=== PATIENT | female | born 1995 | race Caucasian/White ===

== ENCOUNTER 2017-05-29 19:30 | Emergency (ER) | payer OTHER ==
[~2017-05-29] VITALS: Ht 160 cm; Wt 88.0 kg
[~2017-05-29 19:30] MED LIST: ALLER-TEC10 MG PO; AZITHROMYCIN250 MG PO; CLONIDINE HCL0.1 MG PO; GUAIFENESIN-CO118 ML PO; GUIATUSS AC SY120 ML PO; PREDNISONE20 MG PO; PROBIOTIC1 EAC3 PO; ZOFRAN4 MG PO
--- OUTSIDE RECORDS SUMMARY | 2017-05-29 19:57 | XMS ---
Demographics + + + | Address | [address] | | | [place] [address] | + + + | Preferred Language | Unknown | + + + | Marital Status | Unknown | + + + | Jain Affiliation | Unknown | + + + | Race | Unknown | + + + | Ethnic Group | Unknown | + + + Author + + + | Author | [facility] | + + + | Organization | [facility] | + + + | Address | [address] | | | [place] [address] | + + + | Phone | | + + + Care Team Providers + + + + | Care Payroll Representative Name | Role | Phone | + + + + Unavailable | Unavailable | + + + + PROBLEMS Unknown Problems ALLERGIES + + + + +--------+ | Substance | Reaction | Event Type | Date | Status | + + + + +--------+ | Morphine | Unknown | Drug Allergy | Apr, | Active | + + + + +--------+ SOCIAL HISTORY No smoking Hx information available PLAN OF CARE + +---------+ | Activity | Details | + +---------+ +---+ | | +---+ + + + | Follow Up | as scheduled with PCP to establish care | | | Reason:null | + + + VITAL SIGNS + + + + | Height | 64.75 in | 2017-04-09 | + + + + | Weight | 194.4 lbs | 2017-04-09 | + + + + | BMI | 32.60 kg/m2 | 2017-04-09 | + + + + | Temperature | 97.9 degrees Fahrenheit | 2017-04-09 | + + + + | Heart Rate | 104 /min | 2017-04-09 | + + + + | Blood pressure systolic | 141 mm Hg | 2017-04-09 | + + + + | Blood pressure diastolic | 77 mm Hg | 2017-04-09 | + + + + MEDICATIONS + + +---------+ + + + +--------+ | Medicati | Instruct | Dosage | Frequenc | Start | End Date | Duration | Status | | on | ions | | y | Date | | | | + + +---------+ + + + +--------+ | Azithrom | Orally | 2 | 24h | Apr, | 10 Apr, | 1 | Active | | ycin 500 | Once a | tablets | | 2017 | 2017 | dose(s) | | | mg | day | | | | | | | + + +---------+ + + + +--------+ RESULTS + +--------+------+ + | Name | Result | Date | Reference Range | + +--------+------+ + | GC/Chlamydia Aptima | | | | + +--------+------+ + PROCEDURES + + + + + | Procedure | Date Ordered | Related Diagnosis | Body Site | + + + + + | Est Level III | April 09, 2017 | | | | Intermediate | | | | + + + + + IMMUNIZATIONS No Known Immunizations"
[2017-05-29] MEDS ORDERED: ZOFRAN ODT4 MG PO (21:06)
== END 2017-05-29 21:23 | disposition home or self-care (01) ==
LOC: ED 19:30
DX: K52.9 Noninfective gastroenteritis and colitis, unspecified (principal); Z88.5 Allergy status to narcotic agent
CPT/HCPCS: 80053; 81001; 84703; 85025; 96361; 96374; 99283; J2405; J7040

== ENCOUNTER 2017-07-01 07:49 | Emergency (ER) | payer SELFPAY ==
[~2017-07-01] VITALS: Ht 160 cm; Wt 86.9 kg
[~2017-07-01 07:49] MED LIST changes: +ZOFRAN ODT4 MG PO
== END 2017-07-01 08:00 | disposition home or self-care (01) ==
LOC: ED 07:49
DX: Z00.8 Encounter for other general examination (principal)

== ENCOUNTER 2017-07-23 05:35 | Emergency (ER) | payer OTHER ==
[~2017-07-23] VITALS: Ht 160 cm; Wt 86.6 kg
--- OUTSIDE RECORDS SUMMARY | 2017-07-23 05:46 | XMS ---
Demographics + + + | Address | [address] | | | [place] [address] | + + + | Preferred Language | Unknown | + + + | Marital Status | Unknown | + + + | Spiritism Affiliation | Unknown | + + + | Race | Unknown | + + + | Ethnic Group | Unknown | + + + Author + + + | Author | [facility] | + + + | Organization | [facility] | + + + | Address | [address] | | | [place] [address] | + + + | Phone | | + + + Care Team Providers + + + + | Care Airplane Gastank Liner Assembler Name | Role | Phone | + + + + Unavailable | Unavailable | + + + + PROBLEMS Unknown Problems ALLERGIES + + + + +--------+ | Substance | Reaction | Event Type | Date | Status | + + + + +--------+ | Morphine | Unknown | Drug Allergy | Jun, | Active | + + + + +--------+ SOCIAL HISTORY No smoking Hx information available PLAN OF CARE + +---------+ | Activity | Details | + +---------+ +---+ | | +---+ + + + | Follow Up | prn Reason:null | + + + VITAL SIGNS + + + + | Height | 64.75 in | 2017-07-01 | + + + + | Weight | 193 lbs | 2017-07-01 | + + + + | BMI | 32.36 kg/m2 | 2017-07-01 | + + + + | Temperature | 97.4 degrees Fahrenheit | 2017-07-01 | + + + + | Heart Rate | 83 /min | 2017-07-01 | + + + + | Blood pressure systolic | 123 mm Hg | 2017-07-01 | + + + + | Blood pressure diastolic | 74 mm Hg | 2017-07-01 | + + + + MEDICATIONS + + + + + + + +--------+ | Medicati | Instruct | Dosage | Frequenc | Start | End Date | Duration | Status | | on | ions | | y | Date | | | | + + + + + + + +--------+ | Amoxicil | Orally | 1 tablet | 12h | Jun, | 7 Jul, | 10 | Active | | kerrie 875 | every 12 | | | 2017 | 2017 | day(s) | | | MG | hrs | | | | | | | + + + + + + + +--------+ RESULTS + +--------+------+ + | Name | Result | Date | Reference Range | + +--------+------+ + | Strep Gp A Rapid | | | | | (IH) | | | | + +--------+------+ + PROCEDURES + + + + + | Procedure | Date Ordered | Related Diagnosis | Body Site | + + + + + | STREP A ASSAY | Jul 01, 2017 | | | | W/OPTIC | | | | + + + + + | Est Level III | Jul 01, 2017 | | | | Intermediate | | | | + + + + + | DOC MEDS VERIFIED | Jul 01, 2017 | | | | W/PT OR RE | | | | + + + + + | DSCHRG MED/CURRENT | Jul 01, 2017 | | | | MED MERGE | | | | + + + + + IMMUNIZATIONS No Known Immunizations"
[2017-07-23] MEDS ORDERED: ACYCLOVIR200 MG PO (06:39)
== END 2017-07-23 06:50 | disposition home or self-care (01) ==
LOC: ED 05:35
DX: J02.9 Acute pharyngitis, unspecified (principal); F31.9 Bipolar disorder, unspecified; F32.9 Major depressive disorder, single episode, unspecified; Z87.891 Personal history of nicotine dependence; Z88.5 Allergy status to narcotic agent
CPT/HCPCS: 87081; 87529; 87880; 99283

== ENCOUNTER 2017-07-25 01:53 | Emergency (ER) | payer OTHER ==
[~2017-07-25] VITALS: Ht 160 cm; Wt 86.6 kg
[~2017-07-25 01:53] MED LIST changes: +ACYCLOVIR200 MG PO
[2017-07-25] MEDS ORDERED: PERCOCET 5-3251 EACH PO (02:24)
[2017-07-25] MEDS ORDERED: TRAMADOL HCL50 MG PO (02:43)
== END 2017-07-25 02:55 | disposition home or self-care (01) ==
LOC: ED 01:53
DX: J02.9 Acute pharyngitis, unspecified (principal); A60.04 Herpesviral vulvovaginitis; F31.9 Bipolar disorder, unspecified; F43.10 Post-traumatic stress disorder, unspecified; F41.9 Anxiety disorder, unspecified; Z88.5 Allergy status to narcotic agent; Z79.899 Other long term (current) drug therapy
CPT/HCPCS: 99283

== ENCOUNTER 2018-06-24 20:32 | Emergency (ER) | payer OTHER ==
[~2018-06-24] VITALS: Ht 160 cm; Wt 66.0 kg
[~2018-06-24 20:32] MED LIST changes: +PERCOCET 5-3251 EACH PO; +TRAMADOL HCL50 MG PO
[2018-06-24] MEDS ORDERED: VALTREX500 MG PO (20:52)
--- OUTSIDE RECORDS SUMMARY | 2018-06-24 21:37 | XMS | Clinical Summary ---
Demographics + + + | Address | [address] | | | [place] [address] | + + + | Home Phone | | + + + | Preferred Language | Unknown | + + + | Marital Status | Single | + + + | Denominational Affiliation | Unknown | + + + | Race | Unknown | + + + | Ethnic Group | Unknown | + + + Author + + + | Author | [facility] | + + + | Organization | [facility] | + + + | Address | Unknown | + + + | Phone | Unavailable | + + + Support + + +---------+ + | Name | Relationship | Address | Phone | + + +---------+ + | Lauren Morataya | ECON | Unknown | | + + +---------+ + Care Team Providers + +------+ + | Care Credit Control Manager Name | Role | Phone | + +------+ + | Medicine, [place] | PP | Unavailable | | Family | | | + +------+ + Allergies + + + + + + | Active Allergy | Reactions | Severity | Noted | Comments | | | | | Date | | + + + + + + | Morphine | Headache | Low | 03/02/20 | | | | | | 15 | | + + + + + + Current Medications + + +---------+---------+------+------+-------+ | Prescription | Sig. | Disp. | Refills | Star | End | Statu | | | | | | t | Date | s | | | | | | Date | | | + + +---------+---------+------+------+-------+ | cephALEXin | Take 1 capsule by | 28 | 0 | 04/05 | | Activ | | (KEFLEX) 500 MG | mouth 4 (four) times | capsule | | 05/23 | | e | | capsule | daily. | | | 17 | | | + + +---------+---------+------+------+-------+ Active Problems Not on file Immunizations +------+ + + | Name | Dates Previously Given | Next Due | +------+ + + | Tdap | 04/30/2017 | | +------+ + + Social History + +-------+ +--------+------+ | Tobacco Use | Types | Packs/Day | Years | Date | | | | | Used | | + +-------+ +--------+------+ | Former Smoker | | 0.25 | | | + +-------+ +--------+------+ + + +---------+ + | Alcohol Use | Drinks/We | oz/Week | Comments | | | ek | | | + + +---------+ + | Yes | | | occ | + + +---------+ + + + + | Sex Assigned at | Date Recorded | | | | + + + | Not on file | | + + + Last Filed Vital Signs + + + + | Vital Sign | Reading | Time Taken | + + + + | Blood Pressure | 134/70 | 04/30/2017 10:09 PM PDT | + + + + | Pulse | 98 | 04/30/2017 10:09 PM PDT | + + + + | Temperature | 36.6 C (97.8 F) | 04/30/2017 10:09 PM PDT | + + + + | Respiratory Rate | 20 | 04/30/2017 10:09 PM PDT | + + + + | Oxygen Saturation | 98% | 04/30/2017 10:09 PM PDT | + + + + | Inhaled Oxygen | - | - | | Concentration | | | + + + + | Weight | 87.7 kg (193 lb 5.5 | 04/30/2017 10:09 PM PDT | | | oz) | | + + + + | Height | 157.5 cm (5' 2") | 03/02/2015 11:52 PM PDT | + + + + | Body Mass Index | - | - | + + + + Plan of Treatment Not on file Results Not on filefrom Last 3 Months
--- OUTSIDE RECORDS SUMMARY | 2018-06-24 21:37 | XMS | Clinical Summary ---
Demographics + + + | Address | [address] | | | [place] [address] | + + + | Home Phone | | + + + | Preferred Language | Unknown | + + + | Marital Status | Single | + + + | Anabaptism Affiliation | Unknown | + + + | Race | Unknown | + + + | Ethnic Group | Unknown | + + + Author + + + | Author | [facility] | + + + | Organization | [facility] | + + + | Address | Unknown | + + + | Phone | Unavailable | + + + Support + + +---------+ + | Name | Relationship | Address | Phone | + + +---------+ + | Lauren Morataya | ECON | Unknown | | + + +---------+ + Care Team Providers + +------+ + | Care Final Inspector Motorcyles Name | Role | Phone | + +------+ + | Medicine, [place] | PP | Unavailable | | Family [...]
[2018-06-24] MEDS ORDERED: CLINDAMYCIN HC300 MG PO (21:42)
== END 2018-06-24 21:54 | disposition home or self-care (01) ==
LOC: ED 20:32
DX: K08.89 Other specified disorders of teeth and supporting structures (principal); G43.909 Migraine, unspecified, not intractable, without status migrainosus; F31.9 Bipolar disorder, unspecified; F43.10 Post-traumatic stress disorder, unspecified; F41.9 Anxiety disorder, unspecified; F32.9 Major depressive disorder, single episode, unspecified; F20.9 Schizophrenia, unspecified; F17.200 Nicotine dependence, unspecified, uncomplicated; Z88.5 Allergy status to narcotic agent; Z79.899 Other long term (current) drug therapy
CPT/HCPCS: 99283

== ENCOUNTER 2019-03-06 02:44 | Emergency (ER) | payer OTHER ==
[~2019-03-06] VITALS: Ht 162.6 cm; Wt 66.0 kg
--- OUTSIDE RECORDS SUMMARY | ~2019-03-06 | XMS | Clinical Summary ---
Demographics + + + | Address | [address] | | | [place] [address] | + + + | Home Phone [...] + + + | Author | [facility] | + + + | Organization | [facility] | + + + | Address | Unknown | + + + | Phone | Unavailable | + + + Support + + +---------+ + | Name | Relationship | Address | Phone | + + +---------+ + | Lauren Morataya | ECON | Unknown | | + + +---------+ + Care Team Providers + +------+ + | Care Bean Sprout Laborer Name | Role | Phone | + [...] 4 (four) times | capsule | | / | | e | | capsule | [...]
--- OUTSIDE RECORDS SUMMARY | ~2019-03-06 | XMS | Clinical Summary ---
Demographics + + + | Address | [address] | | | [place] [address] | + + + | Home Phone | | + + + | Preferred Language | Unknown | + + + | Marital Status | Single | + + + | Catholic Affiliation | Unknown | + + + | Race | Unknown | + + + | Ethnic Group | Unknown | + + + Author + + + | Author | [facility] | + + + | Organization | [facility] | + + + | Address | Unknown | + + + | Phone | Unavailable | + + + Support + + +---------+ + | Name | Relationship | Address | Phone | + + +---------+ + | Lauren Morataya | ECON | Unknown | | + + +---------+ + Care Team Providers + +------+ + | Care Green Chain Puller Name | Role | Phone | + [...]
[~2019-03-06 02:44] MED LIST changes: +CLINDAMYCIN HC300 MG PO; +VALTREX500 MG PO
--- OUTSIDE RECORDS SUMMARY | 2019-03-06 02:46 | XMS ---
PreManage Notification: BENEDICT SMITH Security Clinical Registered Nurse Events No recent Security Events currently on file CRITERIA MET - Group Notification - [facility] - Has Care Guidelines CARE PROVIDERS LEGACY GOOD Primary Care Current [facility] PHONE: Unknown Gustavo Smith - Case or Drop Forge Operator [facility]: [phone] Alayna Braswell Current PHONE: Unknown Guidelines Source: [facility] Guidelines Date: 06/06/2017 Care Coordination: ENCOURAGE PATIENT TO FIND AND USE PCP FOR NON-EMERGENT PROBLEMS. GIVE LOCKER ATTENDANT PHONE NUMBER FOR HELP OR QUESTIONS. [phone] Additional care guidelines exist for the following facilities: [facility] ( 03/24/2018 ) [place] VISIT COUNT (12 MO.) [address] [place] [address] [facility] TOTAL 6 NOTE: Visits indicate total known visits. ED/UCC VISIT TRACKING (12 MO.) 03/06/2019 02:45 [facility] [place] TYPE: Emergency COMPLAINT: - VOMITING AND DIARRHEA 10/11/2018 11:59 [facility] [place] TYPE: Emergency COMPLAINT: - ABD PAIN/VAGINAL BLEEDING DIAGNOSES: - Schizophrenia, unspecified - Anxiety disorder, unspecified - Antepartum hemorrhage, unspecified, first trimester - Bipolar disorder, unspecified - Migraine, unspecified, not intractable, without status migrainosus - Allergy status to narcotic agent status - Complete or unspecified spontaneous without complication - Post-traumatic stress disorder, unspecified 10/09/2018 01:24 [facility] [place] TYPE: Emergency DIAGNOSES: - miscarriage - Complete or unspecified spontaneous without complication 09/26/2018 01:09 [facility] [place] TYPE: Emergency COMPLAINT: - POSS OD DIAGNOSES: - Less than 8 weeks gestation of - Smoking (tobacco) complicating , first trimester - Injury, poisoning and certain other consequences of external causes complicating , first trimester - Poisoning by other antipsychotics and neuroleptics, accidental (unintentional), initial encounter - Nicotine dependence, other tobacco product, uncomplicated - Other group home (current) drug therapy - Other psychoactive substance abuse, uncomplicated - Other mental disorders complicating , first trimester - Allergy status to narcotic agent status 06/24/2018 20:33 [facility] [place] TYPE: Emergency COMPLAINT: - RT SIDE FACIAL PAIN/SWELLING DIAGNOSES: - Major depressive disorder, single episode, unspecified - Schizophrenia, unspecified - Nicotine dependence, unspecified, uncomplicated - Migraine, unspecified, not intractable, without status migrainosus - Other director long term care (current) drug therapy - Anxiety disorder, unspecified - Allergy status to narcotic agent status - Other specified disorders of teeth and supporting structures - Bipolar disorder, unspecified - Post-traumatic stress disorder, unspecified 03/20/2018 13:14 [facility] [place] TYPE: Emergency COMPLAINT: - ABDOMINAL PAIN INPATIENT VISIT TRACKING (12 MO.) No inpatient visits to display in this time frame [email or web address]
[2019-03-06] MEDS ORDERED: ZOFRAN4 MG PO (05:45)
== END 2019-03-06 05:54 | disposition home or self-care (01) ==
LOC: ED 02:44
DX: K52.9 Noninfective gastroenteritis and colitis, unspecified (principal); F19.10 Other psychoactive substance abuse, uncomplicated; F31.9 Bipolar disorder, unspecified; F41.9 Anxiety disorder, unspecified; F43.10 Post-traumatic stress disorder, unspecified; F20.9 Schizophrenia, unspecified; F17.200 Nicotine dependence, unspecified, uncomplicated; Z88.5 Allergy status to narcotic agent
CPT/HCPCS: 80053; 81001; 83690; 84703; 85025; 96374; 99284-25; J2405; J7030

== ENCOUNTER 2019-08-11 02:52 | Emergency (ER) | payer OTHER ==
[~2019-08-11] VITALS: Ht 162.6 cm; Wt 59.0 kg
--- OUTSIDE RECORDS SUMMARY | ~2019-08-11 | XMS | Clinical Summary ---
Demographics + + + | Address | [address] | | | [place] [address] | + + + | Home Phone | | + + + | Preferred Language | Unknown | + + + | Marital Status | Single | + + + | Moravian Affiliation | Unknown | + + + | Race | Unknown | + + + | Ethnic Group | Unknown | + + + Author + + + | Author | [facility] (Historical as of | | | 06-20-19) | + + + | Organization | [facility] (Historical as of | | | 06-20-19) [...] Team Providers + +------+ + | Care Consulting Services Associate Name | Role | Phone | + [...]
--- OUTSIDE RECORDS SUMMARY | ~2019-08-11 | XMS | Clinical Summary ---
Demographics + + + | Address | [address] | | | [place] [address] | + + + | Home Phone | | + + + | Preferred Language | Unknown | + + + | Marital Status | Single | + + + | Nondenominational Affiliation | Unknown | + + + | Race | Unknown | + + + | Ethnic Group | Unknown | + + + Author + + + | Author | [facility] (Historical as of | | | 06-20-19) | + + + | Organization | [facility] (Historical as of | | | 06-20-19) [...] Team Providers + +------+ + | Care Asparagus Cutter Name | Role | Phone | + [...]
[2019-08-11] MEDS ORDERED: AMOXICILLIN500 MG PO (03:31)
== END 2019-08-11 03:39 | disposition home or self-care (01) ==
LOC: ED 02:52
DX: J02.0 Streptococcal pharyngitis (principal); F17.200 Nicotine dependence, unspecified, uncomplicated; Z88.5 Allergy status to narcotic agent
CPT/HCPCS: 87880; 99283

== ENCOUNTER 2019-10-03 08:47 | Emergency (ER) | payer OTHER ==
[~2019-10-03] VITALS: Ht 162.6 cm; Wt 59.2 kg
--- OUTSIDE RECORDS SUMMARY | ~2019-10-03 | XMS | Clinical Summary ---
Demographics + + + | Address | [address] | | | [place] [address] | + + + | Home Phone | | + + + | Preferred Language | Unknown | + + + | Marital Status | Single | + + + | Lutheran Affiliation | Unknown | + + + | Race | Unknown | + + + | Ethnic Group | Unknown | + + + Author + + + | Author | [facility] (Historical as of | | | 06-20-19) | + + + | Organization | [facility] (Historical as of | | | 06-20-19) | + + + | Address | Unknown | + + + | Phone | Unavailable | + + + Support + + +---------+ + | Name | Relationship | Address | Phone | + + +---------+ + | Lauren Morataya | ECON | Unknown | | + + +---------+ + Care Team Providers + +------+ + | Care Services Program Manager Name | Role | Phone | + +------+ + | Dr. Geetha | PP | Unavailable | + +------+ + Allergies + + [...]
--- OUTSIDE RECORDS SUMMARY | ~2019-10-03 | XMS | Clinical Summary ---
Demographics + + + | Address | [address] | | | [place] [address] | + + + | Home Phone | | + + + | Preferred Language | Unknown | + + + | Marital Status | Single | + + + | Gnosticist Affiliation | Unknown | + + + | Race | Unknown | + + + | Ethnic Group | Unknown | + + + Author + + + | Author | [facility] (Historical as of | | | 06-20-19) | + + + | Organization | [facility] (Historical as of | | | 06-20-19) [...] Team Providers + +------+ + | Care Wine Pasteurizer Name | Role | Phone | + [...]
[~2019-10-03 08:47] MED LIST changes: +AMOXICILLIN500 MG PO
[2019-10-03] MEDS ORDERED: PROMETHAZINE HC25 M1 PO (11:14)
== END 2019-10-03 11:21 | disposition home or self-care (01) ==
LOC: ED 08:47
DX: O21.9 Vomiting of pregnancy, unspecified (principal); O02.81 Inappropriate change in quantitative human chorionic gonadotropin (hCG) in early pregnancy; O99.341 Other mental disorders complicating pregnancy, first trimester; F31.9 Bipolar disorder, unspecified; F43.10 Post-traumatic stress disorder, unspecified; F41.9 Anxiety disorder, unspecified; O99.331 Smoking (tobacco) complicating pregnancy, first trimester; F17.200 Nicotine dependence, unspecified, uncomplicated; Z88.5 Allergy status to narcotic agent; Z3A.10 10 weeks gestation of pregnancy
CPT/HCPCS: 80053; 81001; 84702; 85025; 96361; 96374; 99284-25; J2550; J7030

== ENCOUNTER 2019-10-12 17:48 | Emergency (ER) | payer OTHER ==
[~2019-10-12] VITALS: Ht 162.6 cm; Wt 72.8 kg
--- OUTSIDE RECORDS SUMMARY | ~2019-10-12 | XMS | Clinical Summary ---
Demographics + + + | Address | [address] | | | [place] [address] | + + + | Home Phone | | + + + | Preferred Language | Unknown | + + + | Marital Status | Single | + + + | Buddhist Affiliation | Unknown | + + + | Race | Unknown | + + + | Ethnic Group | Unknown | + + + Author + + + | Author | [facility] (Historical as of | | | 06-20-19) | + + + | Organization | [facility] (Historical as of | | | 06-20-19) [...] Team Providers + +------+ + | Care Marketing Services Coordinator Name | Role | Phone | + [...]
--- OUTSIDE RECORDS SUMMARY | ~2019-10-12 | XMS | Clinical Summary ---
Demographics + + + | Address | [address] | | | [place] [address] | + + + | Home Phone | | + + + | Preferred Language | Unknown | + + + | Marital Status | Single | + + + | Adventism Affiliation | Unknown | + + + | Race | Unknown | + + + | Ethnic Group | Unknown | + + + Author + + + | Author | [facility] (Historical as of | | | 06-20-19) | + + + | Organization | [facility] (Historical as of | | | 06-20-19) [...] Team Providers + +------+ + | Care Education Spec Name | Role | Phone | + [...]
[~2019-10-12 17:48] MED LIST changes: +PROMETHAZINE HC25 M1 PO
[2019-10-12] MEDS ORDERED: PRENATAL FORMU1 EAC3 PO (18:24)
[2019-10-12] MEDS ORDERED: ONDANSETRON ODT4 MG SL (18:38)
== END 2019-10-12 18:42 | disposition home or self-care (01) ==
LOC: ED 17:48
DX: O21.9 Vomiting of pregnancy, unspecified (principal); O99.511 Diseases of the respiratory system complicating pregnancy, first trimester; J06.9 Acute upper respiratory infection, unspecified; O99.341 Other mental disorders complicating pregnancy, first trimester; F31.9 Bipolar disorder, unspecified; Z88.5 Allergy status to narcotic agent; Z79.899 Other long term (current) drug therapy; Z3A.12 12 weeks gestation of pregnancy
CPT/HCPCS: 99283

== ENCOUNTER 2019-10-15 23:41 | Emergency (ER) | payer OTHER ==
--- OUTSIDE RECORDS SUMMARY | ~2019-10-15 | XMS | Clinical Summary ---
Demographics + + + | Address | [address] | | | [place] [address] | + + + | Home Phone | | + + + | Preferred Language | Unknown | + + + | Marital Status | Single | + + + | Pentecostalism Affiliation | Unknown | + + + | Race | Unknown | + + + | Ethnic Group | Unknown | + + + Author + + + | Author | [facility] (Historical as of | | | 06-20-19) | + + + | Organization | [facility] (Historical as of | | | 06-20-19) [...] Team Providers + +------+ + | Care Wig Maker Name | Role | Phone | + [...]
--- OUTSIDE RECORDS SUMMARY | ~2019-10-15 | XMS | Clinical Summary ---
Demographics + + + | Address | [address] | | | [place] [address] | + + + | Home Phone | | + + + | Preferred Language | Unknown | + + + | Marital Status | Single | + + + | Tenriism Affiliation | Unknown | + + + | Race | Unknown | + + + | Ethnic Group | Unknown | + + + Author + + + | Author | [facility] (Historical as of | | | 06-20-19) | + + + | Organization | [facility] (Historical as of | | | 06-20-19) [...] Team Providers + +------+ + | Care Product Control And Logistics Analyst Name | Role | Phone | + [...]
[~2019-10-15 23:41] MED LIST changes: +ONDANSETRON ODT4 MG SL; +PRENATAL FORMU1 EAC3 PO
== END 2019-10-16 00:10 | disposition left against medical advice (07) ==
LOC: ED 23:41
DX: Z53.21 Procedure and treatment not carried out due to patient leaving prior to being seen by health care provider (principal)

== ENCOUNTER 2022-01-05 01:42 | Emergency (ER) | payer OTHER ==
[~2022-01-05] VITALS: Ht 162.6 cm; Wt 84.2 kg
[2022-01-05] MEDS ORDERED: AMOXICILLIN500 MG PO (02:27)
== END 2022-01-05 02:42 | disposition home or self-care (01) ==
LOC: ED 01:42
DX: J02.0 Streptococcal pharyngitis (principal); G43.909 Migraine, unspecified, not intractable, without status migrainosus; Z88.5 Allergy status to narcotic agent
CPT/HCPCS: 87880; 96372; 99283; J1885

== ENCOUNTER 2022-07-07 13:38 | Emergency (ER) | payer OTHER ==
[~2022-07-07] VITALS: Ht 162.6 cm; Wt 66.7 kg
--- NOTE | ~2022-07-07 | EKG ---
[facility] [address] [place], [place] [address] Draft EK completed, results pending confirmation PATIENT NAME: BENEDICT SMITH Electrocardiogram DATE OF : [birth year] PHYSICIAN: PRELIMINARY REPORT #: [id number] REPORT IS CONFIDENTIAL AND NOT TO BE RELEASED WITHOUT AUTHORIZATION
[2022-07-07] MEDS ORDERED: BENTYL10 MG/1 ML PO (14:28)
[2022-07-07] MEDS ORDERED: REGLAN10 MG PO (18:12)
== END 2022-07-07 18:28 | disposition home or self-care (01) ==
LOC: ED 13:38
DX: R10.11 Right upper quadrant pain (principal); G43.909 Migraine, unspecified, not intractable, without status migrainosus; Z88.5 Allergy status to narcotic agent
CPT/HCPCS: 36415; 74177; 80053; 81001; 83690; 83735; 84484; 84703; 85025; 93005; 93010; 96374; 99284-25; A9270; J2405; J7030; Q9967

== ENCOUNTER 2023-03-29 08:12 | Emergency (ER) | payer OTHER ==
[~2023-03-29] VITALS: Ht 162.6 cm; Wt 65.0 kg
[~2023-03-29 08:12] MED LIST changes: +BENTYL10 MG/1 ML PO; +REGLAN10 MG PO
[2023-03-29] MEDS ORDERED: NARCAN4 MG NAS (08:29)
[2023-03-29 10:34] VITALS: BP 106/68
== END 2023-03-29 10:34 | disposition home or self-care (01) ==
LOC: ED 08:12
DX: T40.601A Poisoning by unspecified narcotics, accidental (unintentional), initial encounter (principal); R09.2 Respiratory arrest; Z88.5 Allergy status to narcotic agent
CPT/HCPCS: 99284; A9270

== ENCOUNTER 2024-04-13 23:05 | Emergency (ER) | payer OTHER ==
[~2024-04-13] VITALS: Ht 162.6 cm; Wt 68.8 kg
[~2024-04-13 23:05] MED LIST changes: +BACTRIM DS TAB1 EACH PO; +CENTANY30 GM TOP; +NARCAN4 MG NAS
[2024-04-14] MEDS ORDERED: CENTANY30 GM TOP (00:22)
[2024-04-14] MEDS ORDERED: DOXYCYCLINE HYCLATE 100 MG HOME.PACK PO ONE (00:30)
[2024-04-14] MEDS ORDERED: MUPIROCIN 22 GM TUBE TOP ONE (00:30)
[2024-04-14 00:41] VITALS: BP 132/86
== END 2024-04-14 00:42 | disposition home or self-care (01) ==
LOC: ED 23:05
DX: L03.211 Cellulitis of face (principal); Z88.5 Allergy status to narcotic agent; Z79.899 Other long term (current) drug therapy
CPT/HCPCS: A9270

== ENCOUNTER 2024-04-27 12:10 | Emergency (ER) | payer OTHER ==
[~2024-04-27] VITALS: Ht 162.6 cm; Wt 69.0 kg
[2024-04-27] MEDS ORDERED: KETOROLAC TROMETHAMINE 30 MG/ML VIAL IV ONE (13:15)
[2024-04-27 13:39] LABS: BASOPHILS 0.7 % (0-2); EOSINOPHILS 6.7 % (0-6); HEMATOCRIT 39.2 % (35.0-50.0); LYMPHOCYTES 25.7 % (24-44); MCHC 33.2 g/dl (30-36); MCV 84.1 fl (81-99); MONOCYTES 4.8 % (0-12); NEUTROPHILS 62.1 % (39-80); PLATELET COUNT 177 K/uL (140-440); RBC 4.66 M/ul (4.3-5.7); RDW 14.2 (10.5-15.0)
[2024-04-27 13:42] LABS: BILIRUBIN, URINE NEGATIVE (negative); BLOOD/HGB, URINE LARGE (Negative); KETONE, URINE NEGATIVE (Negative); LEUK ESTERASE, URINE NEGATIVE (negative); NITRITE, URINE NEGATIVE (negative)
[2024-04-27 13:50] LABS: BACTERIA, URINE NONE SEEN /hpf (negative); CASTS, URINE NONE SEEN \\lpf; CRYSTALS, URINE NONE SEEN (0-1+); EPITHELIAL CELLS, URINE SQUAMOUS 1+ /lpf (0-1+); RED BLOOD CELLS, URINE 21-40 /hpf (0-5); WHITE BLOOD CELLS, URINE 0-1 /HPF (0-5)
[2024-04-27 13:51] LABS: COLLECTION TYPE, URINE CLEAN CATCH; REFLEX CULTURE, URINE No (No)
[2024-04-27 13:58] LABS: ALBUMIN 3.1 g/dL (3.4-5.0); ALBUMIN/GLOBULIN RATIO 0.97 (1.1-2.4); ALKALINE PHOSPHATASE 51 U/L (46-116); ALT (SGPT) 16 U/L (14-59); ANION GAP 10.7 (7-21); AST (SGOT) 18 U/L (15-37); BILIRUBIN, TOTAL 0.6 ng/dL (0.2-1.0); BUN/CREATININE RATIO 18.46 (6.0-28.6); CALCIUM 8.2 mg/dL (8.5-10.1); CARBON DIOXIDE 27 mmol/L (21-32); CHLORIDE 106 mmol/L (98-107); CREATININE, SERUM 0.65 mg/dL (0.55-1.02); GLOMERULAR FILTRATION RATE,EST 124 mL/min (>60); POTASSIUM 3.7 mmol/L (3.5-5.1); PROTEIN, TOTAL 6.3 g/dL (6.4-8.2); UREA NITROGEN 12 mg/dL (7-18)
[2024-04-27 14:17] LABS: ABO A; RH POSITIVE
[2024-04-27 14:18] LABS: ANTIBODY SCREEN NEGATIVE
[2024-04-27] MEDS ORDERED: HYDROCODON-ACE1 EA11 PO (14:33)
[2024-04-27] MEDS ORDERED: TRANEXAMIC ACI650 MG PO (14:33)
[2024-04-27] MEDS ORDERED: HYDROCODONE/ACETA 7.5/325 TAB PO ONE (14:45)
[2024-04-27 14:46] VITALS: BP 114/71
== END 2024-04-27 14:50 | disposition home or self-care (01) ==
LOC: ED 12:10
PROVIDERS: Emergency Medicine
DX: N93.8 Other specified abnormal uterine and vaginal bleeding (principal); Z88.5 Allergy status to narcotic agent
CPT/HCPCS: 36415; 80053; 81001; 84702; 85025; 86850; 86900; 86901; A9270; J1885

== ENCOUNTER 2024-08-05 19:55 | Emergency (ER) | payer OTHER ==
[~2024-08-05] VITALS: Ht 162.6 cm; Wt 67.0 kg
[~2024-08-05 19:55] MED LIST changes: +HYDROCODON-ACE1 EA11 PO; +TRANEXAMIC ACI650 MG PO
[2024-08-05] MEDS ORDERED: BUPRENORPHINE HC8 MG SL (20:36)
[2024-08-05 21:01] LABS: BASOPHILS 1.2 % (0-2); EOSINOPHILS 2.6 % (0-6); HEMATOCRIT 34.7 % (35.0-50.0); HEMOGLOBIN 11.5 g/dL (12.0-18.0); LYMPHOCYTES 33.1 % (24-44); MCH 27.7 (27-36); MCHC 33.2 g/dl (30-36); MCV 83.4 fl (81-99); MONOCYTES 6.8 % (0-12); NEUTROPHILS 56.3 % (39-80); PLATELET COUNT 157 K/uL (140-440); RBC 4.16 M/ul (4.3-5.7); RDW 13.4 (10.5-15.0)
[2024-08-05 21:18] LABS: ALBUMIN 3.2 g/dL (3.4-5.0); ANION GAP 10.6 (7-21); BILIRUBIN, TOTAL 1.3 ng/dL (0.2-1.0); BUN/CREATININE RATIO 19.67 (6.0-28.6); CALCIUM 8.3 mg/dL (8.5-10.1); CREATININE, SERUM 0.61 mg/dL (0.55-1.02); POTASSIUM 3.6 mmol/L (3.5-5.1); PROTEIN, TOTAL 6.4 g/dL (6.4-8.2)
[2024-08-05] MEDS ORDERED: APIXABAN 5 MG TAB PO ONE (22:00)
[2024-08-05] MEDS ORDERED: ELIQUIS5 M1 PO (22:06)
[2024-08-05 22:17] VITALS: BP 123/80
== END 2024-08-05 22:17 | disposition home or self-care (01) ==
LOC: ED 19:55
PROVIDERS: Internal Medicine
DX: I82.422 Acute embolism and thrombosis of left iliac vein (principal); Z88.5 Allergy status to narcotic agent; Z79.899 Other long term (current) drug therapy
CPT/HCPCS: 36415; 80053; 84703; 85025; 85379; 85730; 99283

== ENCOUNTER 2024-09-07 14:29 | Emergency (ER) | payer OTHER ==
[~2024-09-07] VITALS: Ht 162.6 cm; Wt 64.9 kg
[~2024-09-07 14:29] MED LIST changes: +BUPRENORPHINE HC8 MG SL; +ELIQUIS5 M1 PO
[2024-09-07] MEDS ORDERED: SODIUM CHLORIDE 0.9% 1,000 ML IV ONE (14:45)
[2024-09-07] MEDS ORDERED: VANCOMYCIN HCL/D5W 1 GM/270 ML PIGGYBACK KIT IV ONE (14:45)
[2024-09-07] MEDS ORDERED: ondansetron HCL 4 MG/2 ML VIAL IV ONE (14:45)
[2024-09-07] MEDS ORDERED: HYDROmorphone HCL 1 MG/ML SYR IV ONE (14:45)
[2024-09-07] MEDS ORDERED: CEFEPIME HCL/D5W 2 GM/100 ML PIGGYBACK IV ONE (14:45)
[2024-09-07] MEDS ORDERED: PAIN RELIEVER500 M1 PO (14:49)
[2024-09-07] MEDS ORDERED: ONDANSETRON ODT8 MG PO (14:49)
[2024-09-07] MEDS ORDERED: XANAX0.5 MG PO (14:50)
[2024-09-07 14:55] LABS: BASOPHILS 0.3 % (0-2); EOSINOPHILS 1.8 % (0-6); HEMATOCRIT 37.2 % (35.0-50.0); HEMOGLOBIN 12.9 g/dL (12.0-18.0); LYMPHOCYTES 12.2 % (24-44); MCHC 34.8 g/dl (30-36); MCV 83.2 fl (81-99); MONOCYTES 5.2 % (0-12); NEUTROPHILS 80.5 % (39-80); PLATELET COUNT 134 K/uL (140-440); RBC 4.47 M/ul (4.3-5.7)
[2024-09-07] MEDS ORDERED: SODIUM CHLORIDE 0.9% 1,000 ML IV PRN (15:00)
[2024-09-07 15:04] LABS: PARTIAL THROMBOPLASTIN TIME 32.3 Sec (22.9-41.3)
[2024-09-07 15:05] LABS: ALBUMIN 3.5 g/dL (3.4-5.0); ALBUMIN/GLOBULIN RATIO 0.97 (1.1-2.4); ANION GAP 16.7 (7-21); BILIRUBIN, TOTAL 2.6 ng/dL (0.2-1.0); BUN/CREATININE RATIO 13.23 (6.0-28.6); CALCIUM 8.9 mg/dL (8.5-10.1); CREATININE, SERUM 0.68 mg/dL (0.55-1.02); INR 1.18 (0.80-1.30); POTASSIUM 3.7 mmol/L (3.5-5.1); PROTEIN, TOTAL 7.1 g/dL (6.4-8.2); PROTIME 14.3 Sec (11.2-14.2)
[2024-09-07 15:08] LABS: LACTIC ACID, BLOOD 0.9 mmol/L (0.4-2.0)
[2024-09-07] MEDS ORDERED: DAPTOmycin 500 MG/10 ML VIAL IV ONE (15:15)
[2024-09-07 15:47] LABS: BILIRUBIN, URINE NEGATIVE (negative); BLOOD/HGB, URINE LARGE (Negative); KETONE, URINE >=80 (Negative); LEUK ESTERASE, URINE TRACE (negative); NITRITE, URINE POSITIVE (negative)
[2024-09-07 15:53] LABS: EPITHELIAL CELLS, URINE SQUAMOUS 1+ /lpf (0-1+); WHITE BLOOD CELLS, URINE 21-40 /HPF (0-5)
[2024-09-07 15:54] LABS: BACTERIA, URINE RARE /hpf (negative); CASTS, URINE NONE SEEN \\lpf; COLLECTION TYPE, URINE CLEAN CATCH; CRYSTALS, URINE NONE SEEN (0-1+); REFLEX CULTURE, URINE Yes (No)
[2024-09-07 16:00] LABS: AMPHETAMINES, URINE POSITIVE (NEGATIVE); BARBITURATES, URINE NEGATIVE (NEGATIVE); BENZODIAZEPINE, URINE POSITIVE (NEGATIVE); BUPRENORPHINE, URINE POSITIVE (NEGATIVE); CANNABINOID, URINE POSITIVE (NEGATIVE); COCAINE, URINE NEGATIVE (NEGATIVE); ECSTASY, URINE POSITIVE (NEGATIVE); FENTANYL, URINE NEGATIVE (NEGATIVE); METHADONE, URINE NEGATIVE (NEGATIVE); OPIATES, URINE POSITIVE (NEGATIVE); OXYCODONE, URINE NEGATIVE (NEGATIVE); PHENCYCLIDINE, URINE NEGATIVE (NEGATIVE)
[2024-09-07 16:54] LABS: INFLUENZA B NAA NEGATIVE (NEGATIVE); RESPIRATORY SYNCYTIAL VIR NAA NEGATIVE (NEGATIVE)
[2024-09-07] MEDS ORDERED: ACETAMINOPHEN 500 MG TAB PO ONE (19:00)
[2024-09-07 19:05] VITALS: BP 98/69
[2024-09-07] MEDS ORDERED: ELIQUIS5 MG PO (19:10)
[2024-09-07] MEDS ORDERED: CEFDINIR300 MG PO (19:10)
[2024-09-07] MEDS ORDERED: DOXYCYCLINE HY100 MG PO (19:10)
== END 2024-09-07 19:20 | disposition home or self-care (01) ==
LOC: ED 14:29
PROVIDERS: Emergency Medicine
DX: L03.116 Cellulitis of left lower limb (principal); F11.10 Opioid abuse, uncomplicated; F15.10 Other stimulant abuse, uncomplicated; N39.0 Urinary tract infection, site not specified; Z88.5 Allergy status to narcotic agent; Z79.01 Long term (current) use of anticoagulants; Z79.899 Other long term (current) drug therapy
CPT/HCPCS: 36415; 51701; 80053; 80307; 81001; 83605; 85025; 85610; 85730; 87040; 87088; 87502; 93971; 99284-25; A9270; J0692; J1171; J2405; J7030; U0002